=== PATIENT | male | born 1980 | race Caucasian/White ===

== ENCOUNTER 2024-06-09 12:39 | Emergency (ER) | payer OTHER ==
[~2024-06-09] VITALS: Ht 180.3 cm; Wt 80.7 kg
[~2024-06-09 12:39] MED LIST: IBU800 M1 PO; Norco 7.5-3251 EACH PO
[2024-06-09 13:53] VITALS: BP 152/99
[2024-06-09] MEDS ORDERED: HYDROcodone 5-APAP 325 TAB PO ONE (15:25)
[2024-06-09] MEDS ORDERED: Norco 5-325 Ta1 EACH PO (16:04)
== END 2024-06-09 16:17 | disposition home or self-care (01) ==
LOC: ER 12:39
DX: R07.81 Pleurodynia (principal)
CPT/HCPCS: 71046; 99283-25; A9270

== ENCOUNTER 2024-08-18 21:16 | Emergency (ER) | payer OTHER ==
[~2024-08-18] VITALS: Ht 180.3 cm; Wt 84.4 kg
[~2024-08-18 21:16] MED LIST changes: +Norco 5-325 Ta1 EACH PO
[2024-08-18 21:39] VITALS: BP 139/95
[2024-08-18] MEDS ORDERED: Ketorolac Tromethamine 10 MG Tab PO ONE (23:15)
== END 2024-08-18 23:52 | disposition home or self-care (01) ==
LOC: ER 21:16
DX: M25.511 Pain in right shoulder (principal); R07.81 Pleurodynia; W11.XXXA Fall on and from ladder, initial encounter
CPT/HCPCS: 71045; 73030; 99283-25; A9270

== ENCOUNTER 2024-08-19 14:03 | Observation (INO) | payer OTHER ==
[~2024-08-19] VITALS: Ht 180.3 cm; Wt 84.4 kg
[2024-08-19 14:25] VITALS: BP 159/100
[2024-08-19] MEDS ORDERED: Ibuprofen 600 MG Tab PO PRN (15:15)
[2024-08-19 15:38] LABS: BASOPHILS ABSOLUTE AUTO 0.03 K/mm3 (0.00-0.23); BASOPHILS PERCENT AUTO 0 % (0-2); EOSINOPHILS ABSOLUTE AUTO 0.15 K/mm3 (0.00-0.68); EOSINOPHILS PERCENT AUTO 2 % (0-6); Hematocrit 40.1 % (37.0-53.0); IMMATURE GRAN ABSOLUTE AUTO 0.03 K/mm3 (0.00-0.10); IMMATURE GRAN PERCENT AUTO 0 % (0-1); LYMPHOCYTES ABSOLUTE AUTO 1.04 K/mm3 (0.84-5.20); LYMPHOCYTES PERCENT AUTO 13 % (21-46); MONOCYTES ABSOLUTE AUTO 0.73 K/mm3 (0.16-1.47); MONOCYTES PERCENT AUTO 9 % (4-13); Mean Corpuscular HGB 33.8 pg (26.0-34.0); Mean Corpuscular HGB Conc 34.9 g/dL (31.5-36.5); Mean Corpuscular Volume 97 fL (80-100); NEUTROPHILS ABSOLUTE AUTO 6.08 K/mm3 (1.96-9.15); NEUTROPHILS PERCENT AUTO 75 % (41-73); Platelet Count 210 K/mm3 (150-400); RDW Standard Deviation 42.8 fL (35.1-46.3); Red Blood Cell Count 4.14 M/mm3 (4.30-5.90); White Blood Cell Count 8.06 K/mm3 (4.00-11.30)
[2024-08-19] MEDS ORDERED: Acetaminophen 325 MG TABLET PO PRN (15:40)
[2024-08-19 15:51] LABS: Ethanol (Alcohol), Blood, Med 22 mg/dL; Salicylate <1.7 mg/dL (2.8-20.0)
[2024-08-19 15:54] LABS: Alanine Aminotransfer (ALT/SGP 26 U/L (12-78); Albumin, Blood 3.9 g/dL (3.4-5.0); Albumin/Globulin Ratio 1.1 (0.8-1.8); Alk Phos 81 U/L (50-136); Anion Gap 13 mmol/L (3-11); Aspartate Aminotrans (AST/SGOT 23 U/L (12-37); Bilirubin, Total 0.6 mg/dL (0.1-1.0); Blood Urea Nitrogen 12 mg/dL (8-24); Bun/Creatinine Ratio 15.9 (12.0-20.0); CO2, Blood 22 mmol/L (21-32); Calcium, Blood 8.9 mg/dL (8.5-10.1); Chloride, Blood 107 mmol/L (98-108); Creatinine, Blood 0.76 mg/dL (0.60-1.20); Globulin, Blood 3.4 g/dL (2.2-4.0); Glomerular Filtration Rate 113 (60-); Glucose, Blood 99 mg/dL (70-99); Potassium, Blood 4.1 mmol/L (3.5-5.5); Sodium, Blood 138 mmol/L (136-145); Total Protein, Blood 7.3 g/dL (6.4-8.2)
[2024-08-19 15:55] LABS: Acetaminophen, Random <2.0 ug/mL (10.0-30.0)
[2024-08-19 16:06] LABS: Source, Urine Clean Catch
[2024-08-19 16:38] LABS: Influenza A, PCR NEGATIVE (NEGATIVE); Influenza B, PCR NEGATIVE (NEGATIVE); Resp Syncytial Virus, PCR NEGATIVE (NEGATIVE); SARS-Cov-2 (COVID-19) PCR, MMC NEGATIVE (NEGATIVE)
[2024-08-19 16:39] LABS: Appearance, Urine Clear (Clear); Bilirubin, Urine Neg (Neg); Blood, Urine 1+ (Neg); Color, Urine Yellow (P-Yellow); Glucose Qualitative, Urine Neg (Neg); Ketones, Urine Neg (Neg); Leukocyte Esterase, Urine Neg (Neg); Nitrite, Urine Neg (Neg); Protein, Urine Neg (Neg); Specific Gravity, Urine 1.025 (1.003-1.022); Urobilinogen, Urine NORM (Normal)
[2024-08-19 16:48] LABS: Bacteria Rare /hpf; Squamous Epithelial Cells Rare /hpf (Few); White Blood Cells, Urine 0-2 /hpf (0-5)
[2024-08-19 16:53] LABS: U Amphetamine Screen Not Detected; U Barbituate Screen Not Detected; U Benzodiazapine Screen Not Detected; U Buprenorphine Screen Not Detected; U Cannabinoids Screen Not Detected; U Cocaine Screen Not Detected; U Methadone Screen Not Detected; U Methamphetamine Screen Not Detected; U Opiates Screen Not Detected; U Oxycodone Screen Not Detected; U Phencyclidine Screen Not Detected
[2024-08-20] MEDS ORDERED: BUPR75 PO (09:04)
[2024-08-20] MEDS ORDERED: BUPR150ER PO (09:05)
== END 2024-08-19 21:10 | disposition other institution (70) ==
LOC: ER 14:03 → ERHOLD 14:04
PROVIDERS: Physician Assistant; ADMIT Emergency Medicine
DX: T45.0X2A Poisoning by antiallergic and antiemetic drugs, intentional self-harm, initial encounter (principal); R45.851 Suicidal ideations; F32.9 Major depressive disorder, single episode, unspecified
CPT/HCPCS: 0241U; 80053; 80320; 81001; 85025; 86592; 93005; 93010; 99285-25; A9270; G0378; G0480

== ENCOUNTER 2024-08-19 15:38 | Inpatient (IN) | payer OTHER ==
[~2024-08-19] VITALS: Ht 180.3 cm; Wt 86.1 kg
[2024-08-19] MEDS ORDERED: OLANZapine ODT 10 MG Tab MM PRN (20:15)
[2024-08-19] MEDS ORDERED: Polyethylene Glycol 3350 17 gm PO PRN (20:20)
[2024-08-19] MEDS ORDERED: DiphenhydrAMINE HCl 50 MG Cap PO PRN (20:20)
[2024-08-19] MEDS ORDERED: HydrOXYzine Pamoate 50 MG Cap PO PRN (20:20)
[2024-08-19] MEDS ORDERED: Calcium Carbonate 500 MG Tab Chew PO PRN (20:20)
[2024-08-19] MEDS ORDERED: FLU VACC TS2024-25(6MOS UP)/PF 45 MCG/0.5 ML SYRINGE IM ONE (20:20)
[2024-08-19] MEDS ORDERED: Ondansetron 4 MG SoluTab MM PRN (20:20)
[2024-08-19] MEDS ORDERED: LORazepam 2 MG Tab PO PRN (20:20)
[2024-08-19] MEDS ORDERED: Aluminum Hydroxide 320MG/5ML 473 ML PO PRN (20:25)
[2024-08-19] MEDS ORDERED: Ibuprofen 600 MG Tab PO PRN (20:25)
[2024-08-19] MEDS ORDERED: Acetaminophen 325 MG TABLET PO PRN (20:25)
[2024-08-19] MEDS ORDERED: Melatonin 3 MG Tab PO PRN (20:25)
[2024-08-19] MEDS ORDERED: TraZODone HCl 100 MG Tab PO SCH (21:00)
[2024-08-19] MEDS ORDERED: Mirtazapine 15 MG Tab PO SCH (21:00)
[2024-08-19 22:25] VITALS: BP 140/89
--- NOTE | 2024-08-19 22:40 | NUR ---
PATIENT ARRIVED ON [facility] AT 2122 FROM [facility]. HE WAS PLEASANT AND COOPERATIVE THROUGHOUT THE ADMISSION PROCESS. [facility], INVESTED IN HIS MENTAL HEALTH. 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 HE IS WORKING WITH DREW AT [facility] TO GET A BUS TICKET TO [place]. HE STATES THAT DREW WAS THE IMPETUS FOR HIM CHECKING INTO THE ED TO COME OVER TO THE [facility]. HE USES WELLBUTRIN 150 MG PO DAILY AND STATES THAT IT TAKES THE EDGE OFF OF HIS DEPRESSION, BUT THAT HE IS STILL GREATLY DEPRESSED AND SUICIDAL. HE HAD A SUICIDE ATTEMPT LAST NIGHT, 08/18/24. PATIENT REQUESTED AND ATE A SANDWICH AND DRANK WATER, THEN TOOK EVENING MEDICATIONS AND WAS ORIENTED TO HIS ROOM, WHERE HE WENT TO BED. CONTINUING TO MONITOR FOR SAFETY WITH Q15 MINUTE CHECKS.
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
[2024-08-20 08:22] VITALS: BP 137/89
[2024-08-20] MEDS ORDERED: Multivitamins 1 Tab PO SCH (09:00)
[2024-08-20] MEDS ORDERED: BUPR75 PO (09:04)
[2024-08-20] MEDS ORDERED: BUPR150ER PO (09:05)
[2024-08-20] MEDS ORDERED: Nicotine 21 MG PATCH TOP ONE (13:10)
[2024-08-20] MEDS ORDERED: buPROPion HCL 150 MG TAB.SR.12H PO SCH ×2 (17:00→21:00)
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
[2024-08-20 21:13] VITALS: BP 119/90
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
[2024-08-21 08:01] VITALS: BP 135/99
[2024-08-21] MEDS ORDERED: Nicotine 21 MG PATCH TOP SCH (09:00)
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
[2024-08-21 23:32] VITALS: BP 135/100
--- NOTE | 2024-08-22 01:11 | NUR ---
NOC SHIFT SUMMARY Reading a novel in day area at start of shift. Ate snack with peers at scheduled time then returned to tv room until end of evening. Converses when engaged, but otherwise mostly keeps to self. Pt removed nicotine patch before going to bed to help with sleep. Cooperative with scheduled night meds (Remeron, trazodone). Verbalizes improvement in knee pain with ibuprofen. Gave dose when available (@2239) for pain control overnight. Completed written community meeting worksheet, meeting goals for positive self-talk and working on discharge planning. Will likely discharge on Sunday after acquires bus ticket to [place] via [email or web address]. Family support and possible job available in [place]. No issues overnight. Monitoring overnight for improvement in sleep.
[2024-08-22 07:31] VITALS: BP 132/90
--- NOTE | 2024-08-22 14:01 | NUR ---
PT DENIED SI AND REPORTED, "I'M FEELING GOOD, LIVING THE DREAM." THEN HE SMILED :) HE IS PRESENTLY WATCHING A MOVIE WITH PEERS.
--- NOTE | 2024-08-22 16:57 | NUR ---
PT HAS BEEN OUT IN THE PT MILIEU ALL DAY, HE HAS PARTICIPATED IN GROUPS AND BEEN VERY PLEASANT. HE DENIED SI, HI AND AVH. HE REPORTS THAT HE ALWAYS HAS ANXITY. HE RATED HIS LEFT KNEE AND RIGHT SHOULDER PAIN AT 7/10 SEVERAL TIMES TODAY AND WAS GIVEN ADVIL 600MG AT 8:13 AND 16:14. THE FIRST TIME THE PAIN WENT DOWN AND THEN HE TOOK PART IN AN EXERCISE GROUP AND THE PAIN WENT BACK UP TO 7/10w. PT WAS DIRECTED TO NOT PARTICIPATE IN THOSE GROUPS THAT CAUSE PAIN. THE SECOND DOSE REDUCED HIS PAIN DOWN TO 4/10w. PT IS LOOKING FORWARD TO DISCHARGING ON SUNDAY AND GETTING BACK TO FAMILY IN [place]. JUT A LITTLE NERVOUS ABOUT THE BUS TICKET ETC.
[2024-08-22 23:17] VITALS: BP 138/88
--- NOTE | 2024-08-23 00:19 | NUR ---
Shift Assessment Note Received Pt at 1900. Denied SI/HI/AVH. Endorsed anxiety 6/10, endorsed depression 3/10. Mood and affect stable. Appropriate eye contact. Med compliant; received PRN (see OCT) for sleeplessness. Endorsed pain 6/10 in L knee and R shoulder; received PRN (see MAR.) Pt participated in evening wrap-up group during snack. Interacted appropriately with peers and staff. Retired to bed without complications. Plan: Continue to provide safe, therapeutic environment in which to work on TP goals. Continue discharge planning.
--- NOTE | 2024-08-23 04:20 | NUR ---
Shift Summary Pt was in the dayroom watching tv at the start of shift. Discussed plan for the evening, with which he was in agreement. Participated fully in assessment, and denied SI/HI/AVH. Med compliant; received PRNs for sleeplessness and L knee/R shoulder pain. Particpated in evening wrap-up group, and ate 100% of snack. Interacted appropriately with peers and staff. After group, he watched tv until retiring to bed for the evening. He rested throughout the night without complication.
[2024-08-23 08:03] VITALS: BP 122/92
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
[2024-08-23 22:05] VITALS: BP 130/98
--- NOTE | 2024-08-24 04:13 | NUR ---
Patient is alert and oriented times four. very pleasant and cooperative with staff and peers. Was out in the milieu for evening activities, then to bed around 2100 after receiving Advil and Tylenol for Left knee and right shoulder pain. No SI,HI or AVH noted on assessment prior to HS. Will continue close monitoring every 15 minutes for safety and comfort.
[2024-08-24 08:10] VITALS: BP 111/79
--- NOTE | 2024-08-24 17:13 | NUR ---
SHIFT SUMMARY PT WAS AWAKE AND UP IN MILIEU SINCE THE START OF SHIFT, HE HAS BEEN VERY COOPERATIVE, APPRECIATIVE AND ENGAGING. PT HAS PARTICIPATED IN ALL MEALS AND GROUP TIMES, HE SPENT ALL OPEN TIME IN THE GROUP TV ROOM WHILE IT WAS OPEN. POC FOR TOMORROW IS THE ADAPT WORKER WILL TAKE PT TO [place] TOMORROW TO CATCH THE [employer] BUS ENROUTE TO [place] WHERE PT'S BROTHER LIVES. PT KNOWS IT'S A VERY LONG TRIP BUT STATES EXCITEMENT ABOUT GOING AND CONTINUING TO GET THINGS STRAIGHT IN HIS LIFE. HE HAS DENIED SI/HI/AVH, NO NEW MEDICATIONS TODAY.
[2024-08-24 20:37] VITALS: BP 131/88
--- NOTE | 2024-08-25 04:00 | NUR ---
SHIFT SUMMARY: ASSUMED CARE FROM PRIOR SHIFT. PATIENT IS A/O X4, ABLE TO VOICE NEEDS AND HAVE MEANINGFUL CONVERSATION. HE IS DISCHARGING LATER TODAY AND IS EXCITED TO "BE IN A BETTER PLACE AND START HIS FUTURE".HE IS COMPLIANT WITH MEDICATIONS, ASSESSMENT AND POC. HE IS ACTIVELY PARTICIPATING IN GROUP AND SNACK TIME. HE DENIES ANY SI, AH OR VH. HE HAS BEEN TAKEN OFF SI WATCH. HE GOES TO BED WITHOUT ENCOURAGMENT. HE SLEEPS THROUGH THE NIGHT. NO NOTED BEHAVIORS OR ISSUES. WE WILL CONTINUE TO MONITOR EVERY 15 MIN FOR SAFETY AND COMFORT. PATIENT AND STAFF FEEL HE IS READY FOR DISCHARGE.
--- NOTE | 2024-08-25 05:36 | NUR ---
PATIENT UP EARLY REQUESTING TYLENOL AND ADVIL. HE WAS SURPRISED HE SLEPT ALL NIGHT WITHOUT GETTING UP FOR PRNS. HE CONTINUES TO BE EXCITED ABOUT BEING DISCHARGED LATER TODAY. MICHAEL HAS DONE VERY WELL WHILE ON THE UNIT. SI PRECAUTIONS ARE COMPLETED.
[2024-08-25 08:02] VITALS: BP 117/85
[2024-08-25] MEDS ORDERED: BUPROPION XL150 M1 PO (10:55)
[2024-08-25] MEDS ORDERED: MELA3 PO (10:55)
[2024-08-25] MEDS ORDERED: MIRT15 PO (10:55)
--- NOTE | 2024-08-25 10:56 | NUR ---
Pt Discharge Ride I have requested a Discharge ride from [facility] for Patients discharge per RN Request. Patient will be arriving at [facility] to meet with Crisis [employer] team member Noble Loza. Ride requested for 1p Ride service is calling to confirm ETA. Message left with Noble to call back to ensure he is available to recieve him when the ride arrives at [facility]. Will update RN on Status.
[2024-08-25] MEDS ORDERED: NICO21TP TOP (10:57)
[2024-08-25] MEDS ORDERED: TRAZ50 PO (10:57)
--- NOTE | 2024-08-25 13:05 | NUR ---
PATIENT BELONGINGS AND SAFE ITEMS RETURNED
--- NOTE | 2024-08-25 13:08 | NUR ---
DISCHARGE NOTE PT AxOx4. PLEASANT AND COOPERATIVE WITH CARE. PT IS DISCHARGING TODAY WITH WARM HAND OFF TO [facility]. PT HAS BEEN FOLLOWING CARE PLAN INCLUDING TAKING MEDS PRESCRIBED AND ATTENDING GROUPS DURING BHU STAY. DISCHARGE INSTRUCTIONS PROVIDED INCLUDING DC MEDICATION LIST, FOLLOW UP INFO AND PT EDUCATION ON DIAGNOSES AND NEW MEDICATION. DREW PAEZ INITIATED ADDITIONAL F/U PATIENT SERVICES THROUGH THEIR ORGANIZATION. PT VERBALIZED UNDERSTANDING OF DC INSTRUCTIONS. BELONGINGS RETURNED AND PATIENT SAFELY ESCORTED OUT TO TRANSPORT VEHICLE AT APPROX 1305.
== END 2024-08-25 13:05 | disposition home or self-care (01) | DRG 885 ==
LOC: BHU 15:38
PROVIDERS: ADMIT Emergency Medicine
DX: F33.2 Major depressive disorder, recurrent severe without psychotic features (principal); R45.851 Suicidal ideations; Z59.00 Homelessness unspecified; Z71.6 Tobacco abuse counseling; F17.210 Nicotine dependence, cigarettes, uncomplicated; F10.90 Alcohol use, unspecified, uncomplicated; Z79.899 Other long term (current) drug therapy; Z79.1 Long term (current) use of non-steroidal anti-inflammatories (NSAID)
CPT/HCPCS: A9270